=== PATIENT | male | born 2000 | race Caucasian/White ===

== ENCOUNTER → 2020-03-31 10:10 | Outpatient (CLI) | payer MEDICAID, SELFPAY ==
--- NOTE | 2020-03-31 07:38 | US_ITS ---
STUDY: ABDOMINAL ULTRASOUND REASON FOR EXAM: Male, 19 years old. Abdominal pain. Loss of appetite. TECHNIQUE: Transabdominal ultrasound was performed with real-time and static cam scale imaging. TECHNICAL QUALITY: Adequate. COMPARISON: None. FINDINGS: Liver: The liver measures 15.6 cm. There is normal echogenicity of the liver. There is mild intrahepatic biliary duct dilatation. There is hepatic color flow. The direction of portal flow is hepatopetal. There is no demonstrated mass lesion. Gallbladder: Normal distended gallbladder. The gallbladder wall measures 2 mm. There is a negative sonographic Thompson''s sign. There is no pericholecystic fluid. There are no gallstones. There is a 0.7 x 0.5 cm polyp in the gallbladder. Common Bile Duct (C.B.D.): The common bile duct measures 3 mm. There are no ductal stones identified. Pancreas: Normal size of the head, body and tail of the pancreas. There is normal echogenicity of the pancreas. There is no demonstrated pancreatic mass or cyst. Spleen: Normal size of the spleen. The spleen measures 11.3 cm. Right Kidney: Normal size of the right kidney. The right kidney measures 10.5 cm. Normal renal cortex. There is no demonstrated renal mass or cyst. There is no right hydronephrosis. Left Kidney: Normal size of the left kidney. The left kidney measures 11.1 cm. Normal renal cortex. There is no demonstrated renal mass or cyst. There is no left hydronephrosis. Aorta: The aorta is normal in caliber. I.V.C.: The IVC is patent. There is no ascites. US/Abdomen Complete IMPRESSION: Mild intrahepatic biliary duct dilatation. Normal caliber common bile duct. No ductal stones are identified. 7 x 5 mm gallbladder polyp. Otherwise, unremarkable sonographic appearance of the gallbladder. The remainder of the examination is within normal limits. Electronically Signed: Santy Sargent MD at 11:37 EST Tel , Service support ,
== END ==
PROVIDERS: PCP Pediatrics; Referring Provider Pediatrics; Visit Provider Pediatrics
DX: R10.84 Generalized abdominal pain (principal)
CPT/HCPCS: 76700

== ENCOUNTER 2023-02-04 10:47 | Emergency (ER) | payer MEDICAID, SELFPAY ==
[2023-02-04 10:48] VITALS: BP 138/84; PULSE 67; RESP 18; TEMP 36.2; O2SAT 100; BMI 23.4
--- NOTE | 2023-02-04 13:06 | ED.RN ---
pt left without being seen.
== END 2023-02-04 12:30 | disposition left against medical advice (07) ==
LOC: ED 12:31
PROVIDERS: PCP Pediatrics
DX: R51.9 Headache, unspecified (principal)